=== PATIENT | male | born 1945 | race Hispanic/Latino ===

== ENCOUNTER 2021-03-12 08:26 | Outpatient (CLI) | payer OTHER ==
--- NOTE | 2021-03-12 14:18 | Nuclear Medicine Report ---
NUCLEAR MEDICINE BONE SCAN, THREE-PHASE INDICATION: POSSIBLE INFECTION LEFT HIP. TECHNIQUE: 26.2 mCi of Tc-99m MDP were injected IV. Whole body images were obtained. COMPARISON: No relevant prior imaging study available. FINDINGS: Skeletal Structures/Lesions: There is faint radiotracer uptake about the left hip particularly along the lateral margin and over the greater trochanter seen on the delayed images. The immediate images a nd the flow images are unremarkable, while the delayed images show the findings. Otherwise there is mild scattered tracer uptake in the spine, shoulders, knees, and ankles/feet which is likely degenera tive in nature. A couple consecutive lower lateral ribs on the right show uptake which may be seen wi th healing fractures--correlate with history. Soft Tissues: Normal. Kidneys: Normal, symmetric activity. Additional Findings: None. IMPRESSION: 1. Mild radiotracer uptake about the left hip on the delayed images could be reactive or could be see n with evolving loosening change. Lack of uptake on the immediate and flow images would be atypical f or infection. Correlation with radiographs (I have none) would be extremely helpful. 2. Findings in the right rib cage suggesting healing fractures. Correlate with history. 3. Scattered degenerative changes. Signer Name: Rahul Lujan MD Signed: 03/12/2021 2:13 PM Workstation Name: [id number]
== END 2021-03-12 08:27 | disposition home or self-care (01) ==
LOC: NM 08:26
PROVIDERS: ATTEND Psychiatry & Neurology Psychiatry
DX: T84.52XA Infection and inflammatory reaction due to internal left hip prosthesis, initial encounter (principal); M16.12 Unilateral primary osteoarthritis, left hip; X58.XXXA Exposure to other specified factors, initial encounter
CPT/HCPCS: 78315; A9503